=== PATIENT | female | born 1960 | race Caucasian/White ===

== ENCOUNTER → 2021-09-01 | Outpatient (CLI) | payer MEDICARE ==
[~2021-09-01] MED LIST: ASPIR 8181 MG PO; ATROVENT HFA12.9 GM INH; BENAZEPRIL HCL20 MG PO; BUSPIRONE HCL10 MG PO; BUSPIRONE HCL5 MG PO; METOPROLOL TART25 MG PO; NITROSTAT 0.40.4 MG SL; NORCO 7.5-3251 EACH PO; PANTOPRAZOLE SO40 MG PO; PAXIL10 MG PO; PREDNISONE5 MG PO; RISPERDAL1 MG PO; SPIRIVA18 MCG INH; VENTOLIN/PROVE0.5 ML INH; VIT B12 INJ; VIT C PO; VIT D3 PO; XANAX1 MG PO
== END ==
LOC: LAB 09:24
DX: Z51.81 Encounter for therapeutic drug level monitoring (principal); Z95.2 Presence of prosthetic heart valve; Z79.01 Long term (current) use of anticoagulants
CPT/HCPCS: 36415; 85610

== ENCOUNTER → 2021-09-20 | Outpatient (CLI) | payer MEDICARE, OTHER | LOC: HEART 5 08:16 | DX: Z48.812 Encounter for surgical aftercare following surgery on the circulatory system (principal); Z95.2 Presence of prosthetic heart valve; I27.20 Pulmonary hypertension, unspecified; I08.1 Rheumatic disorders of both mitral and tricuspid valves | CPT/HCPCS: 93306 ==

== ENCOUNTER 2021-11-14 18:48 | Observation (INO) | payer MEDICARE ==
[~2021-11-14] VITALS: Ht 172.7 cm; Wt 78.2 kg
[~2021-11-14 18:48] MED LIST changes: +HYDROCODON-ACE1 EAC2 PO; -NORCO 7.5-3251 EACH PO
[2021-11-15] MEDS ORDERED: ATORVASTATIN CA10 MG PO (10:00)
[2021-11-15] MEDS ORDERED: ADVAIR 250-501 EACH INH (10:00)
[2021-11-15] MEDS ORDERED: MONTELUKAST SOD10 MG PO (10:01)
[2021-11-15] MEDS ORDERED: AMLODIPINE BES2.5 MG PO (10:01)
[2021-11-15] MEDS ORDERED: WARFARIN SODIUM5 MG PO (10:04)
[2021-11-15 10:51] LABS: HEMOGLOBIN 11.5 gm/dl (12.3-15.3); RED BLOOD COUNT 3.85 M/UL (4.00-5.10); WHITE BLOOD COUNT 9.3 K/UL (4.5-11.0)
[2021-11-15 12:04] LABS: BUN/CREATININE RATIO 17 (0-10)
[2021-11-16 03:35] LABS: HEMOGLOBIN 10.8 gm/dl (12.3-15.3); RED BLOOD COUNT 3.63 M/UL (4.00-5.10)
[2021-11-16 03:40] LABS: WHITE BLOOD COUNT 5.3 K/UL (4.5-11.0)
[2021-11-16] MEDS ORDERED: CEFUROXIME250 MG PO (08:14)
== END 2021-11-16 12:30 | disposition home or self-care (01) ==
LOC: PROG CARE 11-15 09:15
PROVIDERS: Physician Assistant Medical; ADMIT Internal Medicine Infectious Disease
DX: N30.00 Acute cystitis without hematuria (principal); N17.9 Acute kidney failure, unspecified; M06.9 Rheumatoid arthritis, unspecified; F41.9 Anxiety disorder, unspecified; E55.9 Vitamin D deficiency, unspecified; E53.8 Deficiency of other specified B group vitamins; I10 Essential (primary) hypertension; E78.5 Hyperlipidemia, unspecified; J44.9 Chronic obstructive pulmonary disease, unspecified; K21.9 Gastro-esophageal reflux disease without esophagitis; Z95.2 Presence of prosthetic heart valve; Z79.01 Long term (current) use of anticoagulants; Z79.52 Long term (current) use of systemic steroids; Z79.82 Long term (current) use of aspirin; Z79.899 Other long term (current) drug therapy; Z87.891 Personal history of nicotine dependence; Z88.7 Allergy status to serum and vaccine; Z88.8 Allergy status to other drugs, medicaments and biological substances
CPT/HCPCS: 36415; 71045; 80048; 80053; 82550; 82553; 83735; 84443; 84484; 85025; 85027; 85610; 85730; 93005; 96374; 96376; G0378; G0379; J0696; J1335